=== PATIENT | female | born 1930 | race Caucasian/White ===

== ENCOUNTER → 2016-03-16 | Outpatient (REF) | payer MEDICARE, OTHER ==
[~2016-03-16] MED LIST: ACET65TA OR; ALDA25TA2 OR; ASPI1TAB PO; ASPI81TA83 PO; BACITAB3 PO; CALCIUM/VIT D PO; CALCIUM/VITD PO; CARV3.12 PO; CARV6.25 PO; CORE3.12 OR; DIPH2.5L OR; FLUO10TA2 PO; FURO40TA2 PO; ISOS30BRAN PO; ISOS30TA4 PO; KLON0.5T OR; LASI20TA PO; LASI40TA PO; LEVA250T PO; LISI-538 PO; LISI40TA PO; LOPE2TAB PO; MAGN500T PO; METF-699 PO; METF500T4 PO; NEXI40CA PO; NEXI40GR PO; NITR0.4S SL; NITR4TASL SL; OMEG500C4 PO; OYST500T91 PO; PENTASA PO; PLAV75TA2 PO; PLAV75TA38 PO; POTA10CA2 OR; SIMV20TA2 PO; VITA100066 PO; VITA100T PO; VITAMIN B-12 PO; VITAMIN D PO; VYTO10TA PO; VYTO10TA5 PO; ZOCO5TAB OR; [UNRECOGNIZED DRUG - CODE] PO
[2016-03-16 17:03] LABS: ALBUMIN 3.7 GM/DL (3.2-5.2); ALBUMIN/GLOBULIN RATIO 1.03 (1.00-1.93); BILIRUBIN,TOTAL 0.5 MG/DL (0.2-1.0); CALCIUM LEVEL 9.4 MG/DL (8.8-10.2); CREATININE FOR GFR 1.38 MG/DL (0.55-1.02); GLOMERULAR FILTRATION RATE 38.5 (>32); POTASSIUM SERUM 3.9 MEQ/L (3.5-5.1); TOTAL PROTEIN 7.3 GM/DL (6.4-8.2)
== END ==
LOC: M LABDRAW1 15:11
PROVIDERS: ATTEND Emergency Medicine
DX: E11.9 Type 2 diabetes mellitus without complications (principal)

== ENCOUNTER → 2016-06-09 | Outpatient (REF) | payer MEDICARE, OTHER ==
[2016-06-09 12:51] LABS: ALBUMIN 3.5 GM/DL (3.2-5.2); ALBUMIN/GLOBULIN RATIO 1.17 (1.00-1.93); BILIRUBIN,TOTAL 0.6 MG/DL (0.2-1.0); CALCIUM LEVEL 8.9 MG/DL (8.8-10.2); CREATININE FOR GFR 1.25 MG/DL (0.55-1.02); GLOMERULAR FILTRATION RATE 43.2 (>32); MAGNESIUM LEVEL 1.6 MG/DL (1.8-2.4); POTASSIUM SERUM 3.6 MEQ/L (3.5-5.1); TOTAL PROTEIN 6.5 GM/DL (6.4-8.2)
== END ==
LOC: M LABDRAW1 11:57
PROVIDERS: ATTEND Emergency Medicine
DX: E11.9 Type 2 diabetes mellitus without complications (principal); I10 Essential (primary) hypertension; E78.2 Mixed hyperlipidemia; E55.9 Vitamin D deficiency, unspecified

== ENCOUNTER → 2016-07-03 | Outpatient (REF) | payer MEDICARE, OTHER ==
[2016-07-03 12:15] LABS: CALCIUM LEVEL 9.2 MG/DL (8.8-10.2); CREATININE FOR GFR 1.23 MG/DL (0.55-1.02); POTASSIUM SERUM 3.5 MEQ/L (3.5-5.1)
== END ==
LOC: M LABDRAW1 11:30
PROVIDERS: ATTEND Orthopaedic Surgery
DX: Z01.818 Encounter for other preprocedural examination (principal); I10 Essential (primary) hypertension; E11.9 Type 2 diabetes mellitus without complications

== ENCOUNTER → 2016-07-12 | Outpatient (REF) | payer MEDICARE, OTHER ==
[2016-07-12 13:55] LABS: CALCIUM LEVEL 9.1 MG/DL (8.8-10.2); CREATININE FOR GFR 1.36 MG/DL (0.55-1.02); GLOMERULAR FILTRATION RATE 39.2 (>32); POTASSIUM SERUM 3.1 MEQ/L (3.5-5.1)
== END ==
LOC: M LABDRAW1 12:50
PROVIDERS: ATTEND Orthopaedic Surgery
DX: Z51.81 Encounter for therapeutic drug level monitoring (principal); Z79.899 Other long term (current) drug therapy

== ENCOUNTER → 2016-07-13 | Outpatient (REF) | payer MEDICARE, OTHER ==
[2016-07-13 16:33] LABS: ALBUMIN 3.5 GM/DL (3.2-5.2); CALCIUM LEVEL 9.2 MG/DL (8.8-10.2); CREATININE FOR GFR 1.48 MG/DL (0.55-1.02); GLOMERULAR FILTRATION RATE 35.5 (>32); PHOSPHORUS LEVEL 3.3 MG/DL (2.5-4.9); POTASSIUM SERUM 3.1 MEQ/L (3.5-5.1)
== END ==
LOC: M LABDRAW1 14:48
PROVIDERS: ATTEND Emergency Medicine
DX: E87.6 Hypokalemia (principal); I50.42 Chronic combined systolic (congestive) and diastolic (congestive) heart failure

== ENCOUNTER → 2016-08-31 | Outpatient (REF) | payer MEDICARE, OTHER ==
[~2016-08-31] MED LIST changes: +BACITAB PO; -BACITAB3 PO; +LEVA1TAB PO; -LEVA250T PO; +LOPE2CAP PO; -LOPE2TAB PO; +OMEG500C2 PO; -OMEG500C4 PO; +PLAV1TAB2 PO; -PLAV75TA38 PO; -VYTO10TA PO; +VYTO10TA22 PO
== END ==
LOC: M LAB REF 17:45
PROVIDERS: ATTEND Physician Assistant Medical
DX: N39.0 Urinary tract infection, site not specified (principal)

== ENCOUNTER → 2016-09-11 | Outpatient (REF) | payer MEDICARE, OTHER ==
[2016-09-11 21:02] LABS: CALCIUM LEVEL 7.6 MG/DL (8.8-10.2); CREATININE FOR GFR 1.61 MG/DL (0.55-1.02); GLOMERULAR FILTRATION RATE 32.2 (>32); POTASSIUM SERUM 3.1 MEQ/L (3.5-5.1)
== END ==
LOC: M LABDRAW1 18:10
PROVIDERS: ATTEND Physician Assistant Medical
DX: E87.6 Hypokalemia (principal)

== ENCOUNTER → 2016-10-06 | Outpatient (REF) | payer MEDICARE, OTHER ==
[2016-10-06 18:35] LABS: CALCIUM LEVEL 10.4 MG/DL (8.8-10.2); CREATININE FOR GFR 1.76 MG/DL (0.55-1.02); POTASSIUM SERUM 5.1 MEQ/L (3.5-5.1)
== END ==
LOC: M LABDRAW1 17:19
PROVIDERS: ATTEND Emergency Medicine
DX: E87.6 Hypokalemia (principal)

== ENCOUNTER → 2016-12-01 | Outpatient (CLI) | payer MEDICARE, OTHER ==
[2016-12-01 13:32] LABS: ALBUMIN 3.2 GM/DL (3.2-5.2); ALBUMIN/GLOBULIN RATIO 0.86 (1.00-1.93); BILIRUBIN,TOTAL 0.7 MG/DL (0.2-1.0); CALCIUM LEVEL 9.3 MG/DL (8.8-10.2); CREATININE FOR GFR 1.33 MG/DL (0.55-1.02); GLOMERULAR FILTRATION RATE 40.1 (>32); TOTAL PROTEIN 6.9 GM/DL (6.4-8.2)
== END ==
LOC: M WUC 09:21
PROVIDERS: ATTEND Emergency Medicine
DX: E11.9 Type 2 diabetes mellitus without complications (principal); I10 Essential (primary) hypertension; E78.2 Mixed hyperlipidemia; E55.9 Vitamin D deficiency, unspecified

== ENCOUNTER → 2017-01-06 | Outpatient (CLI) | payer MEDICARE, OTHER ==
[2017-01-06 18:17] LABS: CALCIUM LEVEL 9.8 MG/DL (8.8-10.2); CREATININE FOR GFR 1.63 MG/DL (0.55-1.02); GLOMERULAR FILTRATION RATE 31.7 (>32); POTASSIUM SERUM 4.6 MEQ/L (3.5-5.1)
== END ==
LOC: M WUC 11:38
PROVIDERS: ATTEND Physician Assistant Surgical
DX: Z01.810 Encounter for preprocedural cardiovascular examination (principal); M65.331 Trigger finger, right middle finger

== ENCOUNTER → 2017-05-19 | Outpatient (CLI) | payer MEDICARE, OTHER ==
[2017-05-19 13:21] LABS: ALBUMIN 3.7 GM/DL (3.2-5.2); ALBUMIN/GLOBULIN RATIO 1.09 (1.00-1.93); ALKALINE PHOSPHATASE 111 U/L (45-117); ALT/SGPT 12 U/L (12-78); ANION GAP 6 MEQ/L (8-16); AST/SGOT 14 U/L (7-37); BILIRUBIN,TOTAL 0.5 MG/DL (0.2-1.0); BLOOD UREA NITROGEN 26 MG/DL (7-18); CALCIUM LEVEL 10.1 MG/DL (8.8-10.2); CARBON DIOXIDE LEVEL 33 MEQ/L (21-32); CHLORIDE LEVEL 104 MEQ/L (98-107); CHOLESTEROL LEVEL 167 MG/DL (<200); CHOLESTEROL RISK RATIO 2.197 (<5); CREATININE FOR GFR 1.66 MG/DL (0.55-1.30); GLUCOSE, FASTING 105 MG/DL (70-100); HDL CHOLESTEROL 76 MG/DL (>40); LDL CHOLESTEROL 67.4 MG/DL (<100); MAGNESIUM LEVEL 2.4 MG/DL (1.8-2.4); NON-HDL-C 91 MG/DL; POTASSIUM SERUM 4.7 MEQ/L (3.5-5.1); SODIUM LEVEL 143 MEQ/L (136-145); TOTAL PROTEIN 7.1 GM/DL (6.4-8.2); TRIGLYCERIDES LEVEL 118 MG/DL (<150)
[2017-05-19 13:31] LABS: ESTIMATED AVERAGE GLUCOSE 143 MG/DL (60-110); HEMOGLOBIN A1c 6.6 %
== END ==
LOC: M WUC 09:31
DX: E11.9 Type 2 diabetes mellitus without complications (principal); I10 Essential (primary) hypertension; E83.42 Hypomagnesemia; E55.9 Vitamin D deficiency, unspecified
CPT/HCPCS: 83735

== ENCOUNTER → 2017-11-23 | Outpatient (CLI) | payer MEDICARE, OTHER ==
[2017-11-23 13:40] LABS: ALBUMIN 3.6 GM/DL (3.2-5.2); ALBUMIN/GLOBULIN RATIO 0.97 (1.00-1.93); ALKALINE PHOSPHATASE 113 U/L (45-117); ALT/SGPT 14 U/L (12-78); ANION GAP 7 MEQ/L (8-16); AST/SGOT 16 U/L (7-37); BILIRUBIN,TOTAL 0.6 MG/DL (0.2-1.0); BLOOD UREA NITROGEN 21 MG/DL (7-18); CALCIUM LEVEL 9.5 MG/DL (8.8-10.2); CARBON DIOXIDE LEVEL 29 MEQ/L (21-32); CHLORIDE LEVEL 102 MEQ/L (98-107); CHOLESTEROL LEVEL 150 MG/DL (<200); CHOLESTEROL RISK RATIO 1.948 (<5); CREATININE FOR GFR 1.47 MG/DL (0.55-1.30); GLOMERULAR FILTRATION RATE 35.6 (>32); GLUCOSE, FASTING 103 MG/DL (70-100); HDL CHOLESTEROL 77 MG/DL (>40); LDL CHOLESTEROL 54 MG/DL (<100); MAGNESIUM LEVEL 2.4 MG/DL (1.8-2.4); NON-HDL-C 73 MG/DL; POTASSIUM SERUM 5.1 MEQ/L (3.5-5.1); SODIUM LEVEL 138 MEQ/L (136-145); TOTAL 25(OH) VITAMIN D 34.3 NG/ML (30.0-100.0); TOTAL PROTEIN 7.3 GM/DL (6.4-8.2); TRIGLYCERIDES LEVEL 96 MG/DL (<150)
[2017-11-23 14:21] LABS: MAU/CREAT RATIO 134.2 MCG/MG (0.0-30.0)
[2017-11-23 14:24] LABS: ESTIMATED AVERAGE GLUCOSE 131 MG/DL (60-110); HEMOGLOBIN A1c 6.2 %
== END ==
LOC: M WUC 08:43
DX: E83.42 Hypomagnesemia (principal); E55.9 Vitamin D deficiency, unspecified; E78.2 Mixed hyperlipidemia; I10 Essential (primary) hypertension; E11.9 Type 2 diabetes mellitus without complications
CPT/HCPCS: 83735

== ENCOUNTER → 2018-05-22 | Outpatient (CLI) | payer MEDICARE, OTHER ==
[~2018-05-22] MED LIST changes: -LASI20TA PO; +LASI20TA3 PO; -LEVA1TAB PO; +LEVA250T13 PO; -VITA100T PO; +VITA1TAB22 PO
[2018-05-22 12:28] LABS: BILIRUBIN,TOTAL 0.5 MG/DL (0.2-1.0); CALCIUM LEVEL 10.3 MG/DL (8.8-10.2); CHOLESTEROL RISK RATIO 2.123 (<5); CREATININE FOR GFR 1.71 MG/DL (0.55-1.30); GLOMERULAR FILTRATION RATE 29.9 (>32); MAGNESIUM LEVEL 2.4 MG/DL (1.8-2.4); POTASSIUM SERUM 5.1 MEQ/L (3.5-5.1); TOTAL 25(OH) VITAMIN D 37.3 NG/ML (30.0-100.0); TOTAL PROTEIN 7.4 GM/DL (6.4-8.2)
[2018-05-22 12:46] LABS: HEMOGLOBIN A1c 6.4 %
== END ==
LOC: M WUC 08:32
PROVIDERS: ATTEND Physician Assistant
DX: E11.9 Type 2 diabetes mellitus without complications (principal); I10 Essential (primary) hypertension; E78.2 Mixed hyperlipidemia; E55.9 Vitamin D deficiency, unspecified